=== PATIENT | female | born 1980 | race Caucasian/White ===

== ENCOUNTER 2020-05-04 09:43 | Emergency (ER) | payer OTHER, MEDICAID, SELFPAY ==
[2020-05-04 10:00] VITALS: BP 149/72; PULSE 94; RESP 14; TEMP 37; O2SAT 98
--- NOTE | 2020-05-04 10:16 | ED.SKABFB ---
HPI - Skin/Abscess/Foreign Bdy General Chief complaint: Skin/Abscess/Foreign Body Stated complaint: cyst that has become abcess Time Seen by Provider: 05/04/20 10:13 Source: patient Mode of arrival: Ambulatory Limitations: no limitations History of Present Illness HPI narrative: Patient is a 40-year-old female who presents with abscess under her right breast. She says she typically has a cyst there however over the last 3 days she feels like it has become infected it has become significantly more painful and sensitive and erythematous. She has tried doing warm compresses but it is too painful. She denies any fever or chills. complaint: abscess/boil Onset (ago): day(s) (3) Related Data Previous Rx's Medication Instructions Recorded sulfamethoxazole-trimethoprim 1 tab PO BID #14 tab 05/04/20 [Bactrim DS] Allergies Allergy/AdvReac Type Severity Reaction Status Date / Time morphine Allergy Severe Swelling Verified 05/04/20 10:11 of Lip/Tongue/Throat Review of Systems Review of Systems Narrative: GENERAL: Denies chills,fever HEENT: Denies throat pain RESPIRATORY: Denies dyspnea, cough, wheezing CARDIOVASCULAR: Denies chest pain, palpitations GASTROINTESTINAL: Denies nausea, vomiting MUSCULOSKELETAL: Denies extremity pain, injury SKIN: See HPI NEUROLOGIC: Denies weakness, dizziness, headache, numbness 8 point review of systems is negative except for those stated above and HPI Patient History Medical History Patient denies medical problems (Acute) Social History Smoking Status: Current every day smoker Smoking Status: Current every day smoker alcohol intake frequency: 3 or more drinks per day Substance Use Type: marijuana Exam Initial Vital Signs Initial Vital Signs: Vital Signs Temperature 98.6 F 05/04/20 10:00 Pulse Rate 94 H 05/04/20 10:00 Respiratory Rate 14 05/04/20 10:00 Blood Pressure 149/72 H 05/04/20 10:00 Pulse Oximetry 98 05/04/20 10:00 GENERAL: Well-appearing, well-nourished and in no acute distress. CARDIOVASCULAR: peripheral pulses in tact, cap refill <2 sec RESPIRATORY: No respiratory distress, speaks in full sentences without difficulty EXTREMITIES: Normal range of motion, no clubbing or edema. Neurovascularly intact NEUROLOGICAL: Cranial nerves II through XII grossly intact. Normal gait and speech. SKIN: It erythema under right breast 2 cm x 1 cm no definite fluctuation extremely tender to touch no induration Course Vital Signs Vital signs: Vital Signs - 8 hr 05/04/20 10:00 Temperature 98.6 F Pulse Rate 94 H Respiratory Rate 14 Blood Pressure 149/72 H Pulse Oximetry 98 MDM - Skin/Abscess/Foreign Bdy MDM Narrative Medical decision making narrative: Suspect abscess is forming but not ready for I and D. recommend warm compressing and antibiotics. Discharge Plan Departure Patient Disposition: Home Clinical Impression: Abscess of skin or subcutaneous tissue Qualifiers: Site of cutaneous abscess: trunk Site of cutaneous abscess of trunk: chest wall Qualified Code(s): L02.213 - Cutaneous abscess of chest wall Discharge Date/Time: 05/04/20 10:36 Instructions: DI for Skin Abscess Activity Restrictions/Additional Instructions: *You have been diagnosed with right chest wall abscess *What to do: At this time it is not ready to open. I recommend continuing warm compresses 2-3 times daily as tolerated. It may require drainage over the next few days *Continue to take medications as directed Ibuprofen 600 mg every 6-8 hours if needed for pain Bactrim 1 tablet twice daily for 7 days *Follow up with your primary care provider in 2-3 days *Return to ER if you should have increased swelling, redness, pain or any new, worsening or concerning symptoms Prescriptions: New sulfamethoxazole-trimethoprim [Bactrim DS] 800-160 mg tablet 1 tab PO BID Qty: 14 RF: 0 Referrals: [facility] [Outside] Stand Alone Forms: Work Release Note
--- NOTE | 2020-05-04 10:36 | PC.NURSE ---
deferred to physician
== END 2020-05-04 10:36 | disposition home or self-care (01) ==
PROVIDERS: Emergency Provider Emergency Medicine
DX: L02.213 Cutaneous abscess of chest wall (principal)
CPT/HCPCS: 99281

== ENCOUNTER 2020-05-07 13:31 | Emergency (ER) | payer OTHER, MEDICAID, SELFPAY ==
[2020-05-07 13:41] VITALS: BP 143/65; PULSE 89; RESP 16; TEMP 36.9; O2SAT 97; BMI 27.0
[2020-05-07 13:54] VITALS: PULSE 91; O2SAT 97
[2020-05-07 14:00] VITALS: BP 133/63; PULSE 90; O2SAT 98
[2020-05-07] MEDS: LIDO 1%/SOD BICARB 8.4% (10ML) 10 ML SYRINGE INJ (14:10)
[2020-05-07 14:30] VITALS: PULSE 76; O2SAT 97
[2020-05-07 14:44] VITALS: BP 140/99; PULSE 82; RESP 12; O2SAT 99
--- NOTE | 2020-05-07 15:15 | ED.SKABFB ---
HPI - Skin/Abscess/Foreign Bdy <NABEEL Mas-BC - Last Filed: 05/07/20 15:20> General Chief complaint: Skin/Abscess/Foreign Body Stated complaint: abcess underneath right breast Time Seen by Provider: 05/07/20 13:44 Source: patient Mode of arrival: Ambulatory Limitations: no limitations History of Present Illness HPI narrative: The patient is a 40-year-old female current smoker with history of cysts and abscesses who presents with a chief complaint of an abscess underneath her right breast. Seen and evaluated at the at this facility on 05/04/2020 and started on Bactrim. She did not receive an I and D at that point as it was not ready for I and D. She has had a cyst there for well, states that she thinks it has been infected for approximately 1 week. She denies any fevers nausea vomiting or diarrhea. She denies any chest pain or shortness of breath. She has continued warm packs at least 4 times a day since her emergency department visit. She has taken 5 or 6 doses of her antibiotic. She presents because it is increasingly painful and states. That isturning purple Related Data Previous Rx's Medication Instructions Recorded sulfamethoxazole-trimethoprim 1 tab PO BID #14 tab 05/04/20 [Bactrim DS] Allergies Allergy/AdvReac Type Severity Reaction Status Date / Time morphine Allergy Severe Swelling Verified 05/04/20 10:11 of Lip/Tongue/Throat Review of Systems <NABEEL Mas-BC - Last Filed: 05/07/20 15:20> Review of Systems Narrative: GENERAL: Denies chills, fatigue, malaise, fever, sweats. HEENT: Denies sinus pain, ear pain, sore throat, difficulty swallowing, dizziness. RESPIRATORY: Denies dyspnea, cough, wheezing, hemoptysis, sputum. CARDIOVASCULAR: Denies chest pain, palpitations, orthopnea, edema, GASTROINTESTINAL: Denies nausea, vomiting, abdominal pain, diarrhea, constipation, melena. : Denies dysuria, frequency, incontinence, hematuria, urinary retention. MUSCULOSKELETAL: denies weakness, joint pain, or bony pain SKIN: See HPI NEUROLOGIC: Denies weakness, headache, numbness, change in speech, confusion, seizures, incoordination. PSYCHIATRIC: No concerning psychosocial issues. 12 point review of systems is negative except for those stated above Patient History <CAROLYN Mas - Last Filed: 05/07/20 15:20> Medical History Patient denies medical problems (Acute) Social History Smoking Status: Current every day smoker Smoking Status: Current every day smoker alcohol intake frequency: 3 or more drinks per day Substance Use Type: marijuana Exam <CAROLYN Mas - Last Filed: 05/07/20 15:20> Narrative Exam Narrative: GENERAL: This is a well-nourished, well-developed patient, in no acute distress HEAD: Atraumatic. Normocephalic. No temporal or scalp tenderness. EYES: Pupils equal round and reactive. Extraocular motions intact. No scleral icterus. No injection or drainage. ENT: Nose without bleeding, purulent drainage or septal hematoma. Wearing a mask. Uvula midline. Airway patent. NECK: Trachea midline. No JVD or lymphadenopathy. Supple, nontender, no meningeal signs. CARDIOVASCULAR: Regular rate and rhythm RESPIRATORY: No cough. No increased respiratory effort. No accessory muscle use. NEURO: AOx3. Interactive. Age appropriate. Normal gait and speech. SKIN: 2 x 1 cm of erythema distal to right breast, tender to touch, no fluctuance noted. Small side of using purulence drainage. Initial Vital Signs Initial Vital Signs: Vital Signs Temperature 98.4 F 05/07/20 13:41 Pulse Rate 89 05/07/20 13:41 Respiratory Rate 16 05/07/20 13:41 Blood Pressure 143/65 H 05/07/20 13:41 Pulse Oximetry 97 05/07/20 13:41 <Kimberly Hines MD - Last Filed: 05/07/20 16:23> Initial Vital Signs Initial Vital Signs: Vital Signs Temperature 98.4 F 05/07/20 13:41 Pulse Rate 89 05/07/20 13:41 Respiratory Rate 16 05/07/20 13:41 Blood Pressure 143/65 H 05/07/20 13:41 Pulse Oximetry 97 05/07/20 13:41 Procedures <CAROLYN Mas - Last Filed: 09/24/20 15:20> Abscess I/D I&D #1: Site: chest Side (if applicable): right Local Anesthetic: lidocaine 1% and with bicarb Amount of anesthesia used (mL): 3 Technique: needle aspiration Amount of fluid expressed (mL): 2 Packing used?: none Scores <MANDA Mas - Last Filed: 05/07/20 15:20> GCS Vida coma scale eye opening: Spontaneous [place] coma scale verbal response: Orientated [place] coma scale motor response: Obey commands Vida coma scale total score: 15 Course <MANDA Mas - Last Filed: 05/07/20 15:20> Orders Ordered: ED Orders 05/07/20 14:41 Wound Culture and Gram Stain Stat Discontinued Medications Lidocaine/Sodium Bicarbonate (Buffered Lidocaine 10 Ml Syr) 10 ml INJ NOW ONE Stop: 05/07/20 14:05 Last Admin: 05/07/20 14:10 Dose: 10 ml Documented by: BECKI Vital Signs Vital signs: Vital Signs - 8 hr 05/07/20 13:41 05/07/20 13:54 05/07/20 14:00 Temperature 98.4 F Pulse Rate 89 91 H 90 Respiratory Rate 16 Blood Pressure 143/65 H 133/63 Pulse Oximetry 97 97 98 05/07/20 14:30 05/07/20 14:44 Temperature Pulse Rate 76 82 Respiratory Rate 12 Blood Pressure 140/99 H Pulse Oximetry 97 99 <Kimberly Hines MD - Last Filed: 05/07/20 16:23> Orders Ordered: ED Orders 05/07/20 14:41 Wound Culture and Gram Stain Stat Discontinued Medications Lidocaine/Sodium Bicarbonate (Buffered Lidocaine 10 Ml Syr) 10 ml INJ NOW ONE Stop: 05/07/20 14:05 Last Admin: 05/07/20 14:10 Dose: 10 ml Documented by: BECKI Vital Signs Vital signs: Vital Signs - 8 hr 05/07/20 13:41 05/07/20 13:54 05/07/20 14:00 Temperature 98.4 F Pulse Rate 89 91 H 90 Respiratory Rate 16 Blood Pressure 143/65 H 133/63 Pulse Oximetry 97 97 98 05/07/20 14:30 05/07/20 14:44 Temperature Pulse Rate 76 82 Respiratory Rate 12 Blood Pressure 140/99 H Pulse Oximetry 97 99 MDM - Skin/Abscess/Foreign Bdy <Ashley Ngo, CONSULTING SOLUTION MANAGER-BC - Last Filed: 05/07/20 15:20> [facility] Narrative Medical decision making narrative: A 32-year-old female presents with a chief complaint of continued abscess. Small amount of drainage noted, wound culture obtained. Needle aspiration done with small amount of return. Patient has no signs of systemic infection, is afebrile, feeling well in the emergency department. I discussed at length the importance of following up with primary care provider in the next few days and coming back to the emergency department for any acute concerns such as signs of systemic illness. Discussed at length continuing for Bactrim as previously prescribed, continuing warm packs etcetera. Patient has no questions or concerns upon discharge and states understanding return precautions as well as follow-up care. Discharge Plan Departure Patient Disposition: Home Clinical Impression: Abscess of skin or subcutaneous tissue Qualifiers: Site of cutaneous abscess: trunk Site of cutaneous abscess of trunk: chest wall Qualified Code(s): L02.213 - Cutaneous abscess of chest wall Discharge Date/Time: 05/07/20 14:45 Instructions: DI for Skin Abscess Activity Restrictions/Additional Instructions: Thank you for trusting us with your care today. We have a wound culture pending of the drainage from her abscess. We will call you if we need to change the antibiotics when it results in 2-3 days. Please continue warm packs as well as the antibiotic previously prescribed. I encouraged taking with probiotic or yogurt. Please follow-up with primary care provider in the next few days. I have given you contact information to the [facility] health human resource professional. Please come back to emergency department for any acute concerns such as development of high fevers with the abscess etcetera Prescriptions: No Action sulfamethoxazole-trimethoprim [Bactrim DS] 800-160 mg tablet 1 tab PO BID Qty: 14 RF: 0 Referrals: [facility] [Outside] Stand Alone Forms: Work Release Note <Kimberly Hines MD - Last Filed: 05/07/20 16:23> Cosign ED Attending Cosharshadature Attestation: I was immediately available in the department for consultation throughout this patient's visit. I agree with documentation as above. Kimberyl Hines MD
== END 2020-05-07 14:45 | disposition home or self-care (01) ==
PROVIDERS: Emergency Provider Nurse Practitioner Family
DX: L02.213 Cutaneous abscess of chest wall (principal)
CPT/HCPCS: 10160; 87070; 87077; 87147; 87186; 87205; 99283

== ENCOUNTER 2021-04-08 19:18 | Emergency (ER) | payer OTHER, MEDICAID, SELFPAY ==
[2021-04-08 19:25] VITALS: BP 148/74; PULSE 97; RESP 14; TEMP 37.2; O2SAT 99; BMI 25.9
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
[2021-04-08] MEDS: TET,DIPH,PERTUSS(ACELL),VAC/PF 0.5 ML SYRINGE IM (20:11)
[2021-04-08] MEDS: BACITRACIN OINT 0.9 GM PCKT 1 APPLIC TOP (20:11)
== END 2021-04-08 20:23 | disposition home or self-care (01) ==
PROVIDERS: Emergency Provider Emergency Medicine
DX: T22.29 Burn of second degree of multiple sites of shoulder and upper limb, except wrist and hand (principal); X15.0XXA Contact with hot stove (kitchen), initial encounter; Z23 Encounter for immunization
CPT/HCPCS: 90471; 99283; 90715